=== PATIENT | female | born 2000 | race Caucasian/White ===

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

== ENCOUNTER 2018-07-19 14:50 | Emergency (ER) | payer MEDICARE, MEDICAID ==
[~2018-07-19] VITALS: Ht 165.1 cm; Wt 124.0 kg
[2018-07-19 15:05] VITALS: BP 141/97
--- NOTE | 2018-07-19 15:57 | NUR ---
Patient/Caregiver given discharge instructions and they have confirmed that they understand the instructions. Patient ambulatory with steady gait.
== END 2018-07-19 15:58 | disposition home or self-care (01) ==
LOC: ED 15:57
DX: N61.0 Mastitis without abscess (principal)
CPT/HCPCS: 99283